=== PATIENT | female | born 1985 | race Caucasian/White ===

== ENCOUNTER 2023-05-07 10:40 | Outpatient (CLI) | payer OTHER, SELFPAY ==
--- NOTE | ~2023-05-07 | XR_ITS ---
EXAMINATION: XR chest 2V 05/07/2023 11:06 INDICATION: Pleurodynia. Left rib pain. PROCEDURE: 2 view chest COMPARISON: No prior studies for comparison. FINDINGS: The lungs are clear. The cardiomediastinal silhouette is within normal limits. There are no pleural effusions. There is no pneumothorax suspected. IMPRESSION: 1: NO ACUTE CARDIOPULMONARY DISEASE. Reviewed, dictated and finalized at location B. [place] PLANNER
--- NOTE | ~2023-05-07 | MMUS_ITS ---
EXAMINATION: MM diagnostic lenard BI w mary, US breast BI complete HISTORY: Left breast/rib pain TECHNIQUE: ML, MLO and CC 3-D tomosynthesis images of both breasts were performed and synthetic 2-D i mages were generated. CAD analysis was submitted and interpreted. High resolution complete bilateral breast ultrasound examination including all 4 quadrants and subareolar areas was performed. COMPARISON: None BREAST PARENCHYMAL COMPOSITION: There are scattered areas of fibroglandular density. FINDINGS: MAMMOGRAPHIC FINDINGS: Possible bilateral breast masses including the following: Approximately 2.6 mm mass is suggested at mid depth in the lower inner right breast. Possible 2.3 x 5 mm mass in the posterior lower outer left breast. There are 2 circumscribed oval opacities in the left axillary tail area measuring approximate 4 and 5 mm, likely benign intramammary lymph nodes. No architectural distortion, malignant calcification, skin thickening or retraction of either breast is detected. ULTRASOUND: No suspicious mass or shadowing of either breast is detected. There is a cyst in each constantino ast: Right breast: 10:00 7 cm from nipple: Parallel circumscribed oval 4.4 x 5.1 x 4.3 mm cyst Left breast: 11:00 7 cm from nipple: 6.7 x 6.7 x 6.6 mm sonolucency with through transmission posterior enhancemen t consistent with simple cyst IMPRESSION: 1. Benign findings 2. Routine annual mammographic screening is recommended BI-RADS Category 2: Benign finding(s). Reviewed, dictated and finalized at location A. INJECTOR AND APPLICATOR IMPRESSION: 1. Benign findings 2. Routine annual mammographic screening is recommended BI-RADS Category 2: Benign finding(s).
== END 2023-05-07 10:41 | disposition home or self-care (01) ==
LOC: CHSIMG 10:46
PROVIDERS: Visit Provider Obstetrics & Gynecology
DX: N64.4 Mastodynia (principal); R07.81 Pleurodynia
CPT/HCPCS: 71046; 76641; 77062; 77066; G0279

== ENCOUNTER 2025-04-18 15:16 | Emergency (ER) | payer OTHER, SELFPAY ==
--- NOTE | ~2025-04-18 | XR_ITS ---
EXAMINATION: XR chest 2V, 04/18/2025 15:30 CONSULTING SERVICES MANAGER HISTORY: cp LEFT SIDE RADIATES NECK/BACK/BREAST X 2 WKS COMPARISON: No comparisons available. Technique: 2 views obtained. Findings: The lungs are clear, no effusion. No pneumothorax. Heart is normal size. Mediastinal and hilar contours are within normal limits. Bony thorax no acute abnormality. Impression: No acute cardiopulmonary abnormality. Reviewed, dictated and finalized at location P. ULTING SERVICES MANAGER Impression: No acute cardiopulmonary abnormality.
--- NOTE | ~2025-04-18 | CT_ITS ---
CTA chest PE protocol HISTORY:Chest pain with elevated D-dimer . COMPARISON: None. TECHNIQUE: Following the noncontrasted transit planner, axial images of the thorax were obtained following infusion of 100 cc of Isovue 370. Post-processing on an independent workstation was performed to reconstruct MIP images for evaluation of the thoracic vasculature. FINDINGS: There is no pulmonary embolism, aortic dissection, thoracic aneurysm or pericardial fluid. The lung parenchyma is clear. No pleural effusion or pneumothorax is noted. There is no axillary, mediastinal or hilar adenopathy. Limited evaluation of the upper abdomen demonstrates no gross abnormalities. Review of bone windows demonstrates no osteoblastic or lytic lesions. IMPRESSION: There is no pulmonary embolism, aortic dissection, pericardial fluid or thoracic aneurysm. No acute lung findings. All CT scans at this facility are performed using low dose modulation techniques as appropriate to perform exam including the following: automated exposure control; use of iterative reconstruction technique; adjustment of the mA and/or kV according to patient size (this includes techniques or standardized protocols for targeted exams where dose is matched to indication/reason for exam). Reviewed, dictated and finalized at location S. ARCHITECT IMPRESSION: There is no pulmonary embolism, aortic dissection, pericardial fluid or thoraci c aneurysm. No acute lung findings. All CT scans at this facility are performed using low dose modulation techniqu es as appropriate to perform exam including the following: automated exposure c ontrol; use of iterative reconstruction technique; adjustment of the mA and/or kV according to patient size (this includes techniques or standardized protocol s for targeted exams where dose is matched to indication/reason for exam).
--- NOTE | 2025-04-18 15:16 | ECG_ITS ---
Test Date: 2025-04-18 15:22:49 Measurements Intervals [place] Rate: 96 P: 62 MN: 132 QRS: 78 QRSD: 71 T: 44 QT: 316 QTc: 399 Interpretive Statements SINUS RHYTHM No previous ECG available for comparison Electronically Signed On 04-18-2025 22:29:08 MILL ORDER SCHEDULER by Babar Reynoso D.O
[2025-04-18 15:18] VITALS: BP 134/68; PULSE 88; RESP 16; TEMP 36.8; O2SAT 98
[2025-04-18 15:39] LABS: Hematocrit 41.5 % (37.0-47.0); Hemoglobin 14.2 g/dL (12.0-15.0); Immature Granulocyte Percent A 0.2 % (0-0.5); Lymphocytes Absolute Auto 0.98 K/mm3 (0.9-3.2); Mean Corpuscular HGB Conc 34.2 g/dl (32-36); Mean Corpuscular Hemoglobin 30.8 pg (26-34); Mean Corpuscular Volume 90.0 fl (80-100); Nucleated Red Blood Cells Absolute Auto 0.000 K/mm3 (0.0-0.012); Nucleated Red Blood Cells Perc 0.0 % (0.0-0.2); Platelet Count Result 236 k/mm3 (150-375); Red Blood Count 4.61 M/mm3 (4.2-5.4); White Blood Count 5.7 K/mm3 (4.5-10.0)
[2025-04-18 16:00] LABS: Alanine Aminotransferase 14 U/L (6-35); Albumin Level 4.5 g/dL (3.5-5.1); Alkaline Phosphatase 81 U/L (38-126); Anion Gap 8 mmol/L (4-12); Aspartate Amino Transferase 22 U/L (14-36); Bilirubin,Total 0.7 mg/dL (0.2-1.3); Blood Urea Nitrogen 7 mg/dL (7-17); Calcium 9.1 mg/dL (8.4-10.2); Carbon Dioxide 25 mmol/L (22-30); Chloride 105 mmol/L (98-107); Estimated CRCL calculation 83 ml/min; Estimated Glomerular Filt Rate > 60; Glucose 106 mg/dL (65-110); Lipase 66 U/L (23-300); Potassium 3.6 mmol/L (3.4-5.0); Sodium 138 mmol/L (137-145); Total Protein 7.4 g/dL (6.3-8.2)
--- OUTSIDE RECORDS SUMMARY | 2025-04-18 16:00 | XMS_ITS | Clinical Summary ---
Author Organization [facility] Address [address] [place] [address] Phone Care Team Providers Care Piece Work Inspector Name Role Phone Unavailable Primary Care Provider Unavailabl e Allergies Active Allergy Reactions Criticality Noted Date Comments Sulfa Antibiotics Swelling 2016 Medications IUD'S IU 2007 Active acetaminophen-cod eine (TYLENOL #3) 300-30 MG Tablet TAKE 1 TABLET BY MOUTH EVERY 4 TO 6 HOURS NEEDED FOR PAIN 2 Active amoxicillin-clavu lanate (AUGMENTIN) 875-125 MG Tablet TAKE 1 TABLET BY MOUTH TWICE DAILY FOR 7 DAYS 2 Active ibuprofen (MOTRIN) 800 MG TabletIndications :Dental infection Take 1 Tablet by mouth every 8 hours as needed for Moderate or more severe pain. 45 Tablet 2 Active docusate sodium (Stool Softener) 100 MG CapsuleIndication s:Constipation, unspecified constipation type Take 1 Capsule by mouth 2 times daily. 180 Capsule 3 2 Active Active Problems Problem Noted Date Diagnosed Date Screening for gonorrhea 01/21/2017 Screening for chlamydial disease 01/21/2017 Cystitis 01/13/2016 Fracture of right ulna OCD (obsessive compulsive disorder) Family History Medical History Relation Name Comments Cancer Brother Cancer Father Cancer Mother Cancer Sister Relation Name Status Comments Brother Father Mother Sister Social History Tobacco Use Types Packs/Day Years Used Date Smoking Tobacco: Never Smokeless Tobacco: Never Tobacco Cessation:Counseling Given: Yes Alcohol Use Standard Drinks/Week Comments No 0 (1 standard drink = 0.6 oz pur e alcohol) PHQ-2 Answer Date Recorded Total Score - Questions 1-9 0 02/2022 Sexually Active Control Partners Comments Never Comments No Sex and Gender Information Value Date Recorded Sex Assigned at Not on file Legal Sex Female 11:20 PM CDT Gender Identity Not on file Sexual Orientation Not on file Last Filed Vital Signs Vital Sign Reading Time Taken Comments Blood Pressure 110/78 01/13/2022 11:05 AM CDT Pulse 92 01/13/2022 11:05 AM CDT Temperature 36.4 C (97.5 F) 01/13/2022 11:05 AM CDT Respiratory Rate 16 01/13/2022 11:05 AM CDT Oxygen Saturation 99% 01/13/2022 11:05 AM CDT Inhaled Oxygen Concentration - - Weight 60.9 kg (134 lb 3.2 oz) 01/13/2022 11:05 AM CDT Height 152.4 cm (5') 01/13/2022 11:05 AM CDT Body Mass Index 26.21 01/13/2022 11:05 AM CDT Plan of Treatment Health Maintenance Due Date Last Done Comments Hepatitis C Virus (HCV) Screening 1985 TdaP Immunization 1985 Hepatitis B Immunization (1 of 3 - 19+ 3-dose series) 01/30/2004 Human Papillomavirus (HPV) Immunization (1 - 3-dose SCDM series) 01/30/2012 Pap Smear 07/08/2014 07/08/2011 Cervical Cancer Screening (CCS) 2015 HPV/Cotest 2015 Influenza Immunization (#1) 2025 SARS-COV-2 Immunization ( season) 2025 Respiratory Syncytial Virus (RSV) Immunization (Adult) (1 - 1-dose 75+ series) 01/30/2060 Meningococcal Immunization (ACWY) Aged Out No longer eligible based on patient's age to complete this topic Pneumococcal Immunization Combined Aged Out No longer eligible based on patient's age to complete this topic Rotavirus Immunization Aged Out No lo nger eligible based on patient's age to complete this topic Procedures Procedure Name Priority Date/Time Associated Diagnosis Comments HM PAP SMEAR Routine 07/08/2011 from Last 3 Months or Most Recently Relevant to Health Maintenance Results * HM PAP SMEAR (07/08/2011) Georgiewestley Russell APRN, RECONCILEMENT CLERK [facility] Chris qi Result - Final from Last 3 Months or Most Recently Relevant to Health Maintenance Insurance [employer]ICA[employer]
--- OUTSIDE RECORDS SUMMARY | 2025-04-18 16:00 | XMS_ITS | Clinical Summary ---
Author Organization [facility] Address [address] [place] [address] Care Team Providers Care Vice President Of Consulting Services Name Role Phone Maame Kiran Primary Care Provider [phone] Allergies No known active allergies Medications ondansetron (ZOFRAN-ODT) 4 MG disintegrating tablet Take 1 tablet (4 mg total) by mouth every 8 (eight) hours as needed. 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 [employer] Gender Identity Not on file Sexual Orientation Not on file Last Filed Vital Signs Vital Sign Reading Time Taken Comments Blood Pressure 154/98 06/09/2024 9:08 PM BAND SAW OPERATOR [employer] Pulse 107 06/09/2024 9:08 PM BAND SAW OPERATOR [employer] Temperature 36.5 C (97.7 F) 06/09/2024 9:08 PM BAND SAW OPERATOR [employer] C[employer]TING Respiratory Rate 18 06/09/2024 9:08 PM BAND SAW OPERATOR [employer]TING Oxygen Saturation 99% 06/09/2024 9:08 PM BAND SAW OPERATOR [employer]TING Inhaled Oxygen Concentration - - Weight 62.6 kg (138 lb) 03/01/2024 8:59 PM CDT Height 152.4 cm (5') 03/01/2024 8:59 PM CDT Body Mass Index 26.95 03/01/2024 8:59 PM CDT Plan of Treatment Health Maintenance Due Date Last Done Comments Annual Physical 01/30/1988 Hepatitis C 2003 DTaP, Tdap and Td Vaccines ( 1 - Tdap) 01/30/2004 Hepatitis B Vaccines (1 of 3 - 19+ 3-dose series) 01/30/2004 HPV Vaccines (1 - 3-dose SCD M series) 01/30/2012 Cervical Cancer Screening Pa p with HPV Testing (Age 30 to 64) Every 5 Years 2015 Mammogram Screening 2025 COVID-19 Vaccine (1 - 2024-2 6 season) 2025 Influenza Adult (#1) 2025 Cervical Cancer Screening Pa p Smear (Age 30 to 64) Every 3 Years 05/21/2026 05/21/2023 Cervical Cancer Screening with HPV 05/21/2026 Hepatitis A Vaccines Aged Out No long er eligible based on patient's age to complete this topic Meningococcal B Vaccine Aged Out No l onger eligible based on patient's age to complete this topic Meningococcal Vaccine Aged Out No arvind raheel eligible based on patient's age to complete this topic Pneumococcal Vaccine: Pediat rics (0 to 5 Years) and At-Risk Patients (6 to 49 Years) Aged Out No longer eligi ble based on patient's age to complete this topic RSV Immunizations Under 20 Months Aged Out No longer eligible based on patient's age to complete this topic Insurance [employer] Care Teams Vice President Of Consulting Services Relationship Specialty Start Date End Date Maame Kiran PA [address] [place] [address] PCP - General FAMILY PRACTICE 06/09/24
--- OUTSIDE RECORDS SUMMARY | 2025-04-18 16:00 | XMS_ITS | Clinical Summary ---
Author Organization [facility] [address] Address [address] [place] [address] Phone Care Team Providers Care Power Crane Operator Name Role Phone Maame Kiran Primary Care Provider [phone] Allergies Active Allergy Reactions Criticality Noted Date Comments Hydrocodone Itching Low 08/04/2024 Medications sertraline (ZOLOFT) 100 mg tabletIndicatio ns:Generalized anxiety disorder Take 1 tablet (100 mg total) by mouth daily 90 tablet 12/27/2024 Active hydrOXYzine (ATARAX) 25 mg tabletIndicatio ns:Generalized anxiety disorder Take 1 tablet (25 mg total) by mouth every 6 (six) hours as needed for anxiety May take 1/2 tab instead of a full tab 30 tablet 12/27/2024 Active Active Problems Problem Noted Date Diagnosed Date Acute reaction to situational stress 02/16/2025 Assessment & Plan (02/16/2025 4:02 PM CDT): Uncontrolled, improving. See notes under generalized anxiety disorder. Patient's situational stress is occurring from her work environment and family situation. The family situation is improving and patient reports that her stress from that is getting better. She is very nervous about returning back to the work environment with a unsupportive esters and em[employer] supervisor. Panic attacks 02/16/2025 Assessment & Plan (02/16/2025 4:02 PM CDT): Uncontrolled but improving. Patient reports panic attacks have significantly improved with reduction in stress Hematometra 08/02/2024 Assessment & Plan (08/16/2024 12:47 PM CDT): Resolved per surgery. Patient reports overall feeling much better. Is still having some mild lower abdominal discomfort at times. She is awaiting a follow-up appointment with the puppet master. They did discuss the possibility of hysterectomy. Cervical stenosis (uterine cervix) 08/02/2024 Assessment & Plan (08/16/2024 12:47 PM CDT): Improved post surgery. Patient does have a follow-up with Gynecology. Generalized anxiety disorder 01/28/2024 Assessment & Plan (02/16/2025 4:02 PM CDT): Uncontrolled, improving. Patient will continue Zoloft and Atarax. Patient does need to continue by weekly counseling. It is very imperative that patient continue with counseling. Patient is very motivated to returned to work. I think with continued counseling and medication adjustments patient should be able to return to work part-time on March 21 and then full-time on April 21. Patient will currently need to continue with short-term disability to be able to continue with counseling and continue with medication adjustments and adjusting to the side effects of the medication. Patient will be able to return to work as long as she is not placed back in the stressful environment with a esters and em[employer]ifiers supervisor who will not allow her to work at reduced hours and/or take time off for counseling. Assessment & Plan (12/27/2024 3:24 PM CDT): Uncontrolled, but improved. Continue zoloft 100mg daily. May take atarax as needed to help with sleep. Orders: sertraline (ZOLOFT) 100 mg tablet; Take 1 tablet (100 mg total) by mouth daily hydrOXYzine (ATARAX) 25 mg tablet; Take 1 tablet (25 mg total) by mouth every 6 (six) hours as needed for anxiety May take 1/2 tab instead of a full tab Assessment & Plan (11/30/2024 1:55 PM CDT): Uncontrolled. Patient will increase Zoloft to 100 mg. Follow-up on December 27 Assessment & Plan (11/21/2024 12:49 PM CDT): Chronic, uncontrolled Increase sertraline to 100 mg daily Continue hydroxyzine as needed Referral to counselor Alma Tam Work excuse extension for 1 more week Follow-up with PCP in 1 week Assessment & Plan (11/09/2024 1:25 PM CDT): Chronic, uncontrolled Recent traumatic event Prescriptions for zoloft and hydroxyzine sent to pharmacy so patient Follow up with counselor Work note Assessment & Plan (06/12/2024 10:01 AM RAILROAD CROSSING PROTECTION MAINTAINER): Uncontrolled: increase zoloft to 75mg Assessment & Plan (06/06/2024 2:21 PM RAILROAD CROSSING PROTECTION MAINTAINER): Chronic, worsening - not well controlled Ample time spent with patient discussing her work situation - encouraged her again to seek out HR help given the backlash from her boss; medically speaking, working towards better anxiety control. Urged patient to take sertraline daily as directed - discussed keeping by bedside, toothbrush, or setting alarm in phone to help remember to take. Discussed counseling/therapist. Pt was seeing a therapist in the past and may reconsider but is concerned about her work schedule and availability. She is going to contact her previous therapist about virtual visits if an option. FMLA in place - work note given for today and 06/03/24 Assessment & Plan (05/10/2024 11:29 AM RAILROAD CROSSING PROTECTION MAINTAINER): Chronic, patient has seen some improvement with sertraline daily. However, she has been having more panic attacks. Mostly related to life challenges and situations at work. Encouraged patient to reach out her HR department regarding her concerns with her superior. Encouraged her to continue daily use of sertraline. She can continue to utilize hydroxyzine as needed. Work excuse for yesterday given. Advised her to follow up with NATHANIEL Kiran Assessment & Plan (03/17/2024 1:37 PM CDT): Uncontrolled. We are going to extend patient's FMLA paperwork that states she can work a max of 6 hours until August. Patient will increase her Zoloft to 50 mg daily over the next week. Then will follow back up with her in 4-6 weeks Assessment & Plan (02/02/2024 12:28 PM CDT): Uncontrolled. 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 Completed FMLA paperwork and sent the paperwork back through [employer] to the patient to turn into HR. Follow-up in 2 weeks Assessment & Plan (01/28/2024 10:22 AM CDT): Uncontrolled. Start zoloft daily. Added atarax as needed for anxiety and panic attacks. Given note for medical leave with days off from 01/28 with a return date of 02/02. Medical leave: for situational anxiety, costochondritis, abdominal pain, and panic attacks. Patient is going to complete her online portion 2 HR regarding her medical leave/FMLA paperwork. Patient will then get the FMLA paperwork and she will bring that in to us to complete melody. Pt will have a follow up on 02/02/24. Costochondritis 01/28/2024 Assessment & Plan (12/27/2024 3:24 PM CDT): Flared with stress. Continue to monitor and take nsaids as needed Assessment & Plan (03/17/2024 1:38 PM CDT): Seems to increase with patient's stress level. She does have naproxen at home and may continue taking that as needed. Assessment & Plan (01/28/2024 10:23 AM CDT): Flared. Due to anxiety. Secondary amenorrhea 01/12/2024 Assessment & Plan (06/12/2024 10:00 AM RAILROAD CROSSING PROTECTION MAINTAINER): Will start bcp. Assessment & Plan (01/12/2024 12:32 PM CDT): Patient has had 2 months now with menstrual cramps. No bleeding. Hormone levels were checked recently. Patient had her IUD removed in May. Will continue monitoring. If patient does not have a menstrual cycle by her next visit we will consider around her Provera Generalized abdominal pain 12/06/2023 Assessment & Plan (02/16/2025 4:02 PM CDT): Uncontrolled. Patient's abdominal pain increases with anxiety and stress. Patient will need to follow back up with GI Assessment & Plan (06/12/2024 10:03 AM RAILROAD CROSSING PROTECTION MAINTAINER): Uncontrolled. Restart MiraLax. Patient does Mylanta at home from the ER. Order pelvic ultrasound. Refer to GI Assessment & Plan (06/06/2024 2:19 PM RAILROAD CROSSING PROTECTION MAINTAINER): Chronic, worsening - severe episode of pain a few days ago now improved. Encouraged pt to get CT scheduled If pain returns/worsens, she will go to the ER Assessment & Plan (02/02/2024 12:28 PM CDT): Uncontrolled and increase due to stress. At this time we need to start the SSRI to help reduce her stress level. She needs to continue with her high-fiber foods and MiraLax. Patient may need to consider some antacids like Tums or Rolaids for a few days. Assessment & Plan (01/28/2024 10:23 AM CDT): Worsening. Most likely due to chronic constipation. See notes above under constipation Assessment & Plan (01/12/2024 12:30 PM CDT): Improving. Patient will start MiraLax every other day and may increase to daily depending on her bowel movement inconsistency of the bowel movements. Still awaiting CT scan results. Patient's overall symptoms have improved so most likely her abdominal discomfort is coming from chronic constipation Assessment & Plan (12/06/2023 3:21 PM CDT): Possibly caused by chronic constipation. Will start patient on MiraLax. Awaiting CT scan results. Talked with patient about drinking plenty of water. Talked with patient about daily exercise. Talked with patient about high-fiber foods. Follow-up in March Other constipation 12/06/2023 Assessment & Plan (08/22/2024 4:51 PM CDT): Reports that she was having complaints of constipation as well as severe abdominal pain. She presented to the ED on 08/02/2024 in which hematometra was noted. She had a hysteroscopy as well as a LEEP procedure performed and was started on MiraLax. She states her complaints of lower abdominal pain have significantly decreased and she is currently having soft formed bowel movements daily. Will note small amount of bright red blood on the tissue when she happens to strain but has not seen recently. -Recommended for her to continue daily MiraLax at this timeframe -Increasing constipation could be due to the hematometra -We will follow up in roughly 1 month to see how she is doing and discussed possible colonoscopy. Assessment & Plan (08/16/2024 12:47 PM CDT): Chronic, patient is doing better since surgery. She is taking the stool softener. She has restarted the MiraLax. Patient has an upcoming appointment with GI on August 22 Assessment & Plan (06/12/2024 10:00 AM RAILROAD CROSSING PROTECTION MAINTAINER): Uncontrolled. Restart miralax. Assessment & Plan (01/28/2024 10:22 AM CDT): Uncontrolled due to increase in stress. It is flaring her irritable bowel. Patient will continue with MiraLax daily. Continue with fluids. Continue with high-fiber foods Assessment & Plan (01/12/2024 12:31 PM CDT): Improving. Patient will increase MiraLax to every other day and then move up to daily if tolerated Assessment & Plan (12/06/2023 3:21 PM CDT): New issue. Talked with patient about high-fiber foods. Start patient on MiraLax. Take daily. If stools become too soft or loose reduce to every other day or every 3rd day. Health maintenance examination 09/27/2023 Overview (12/06/2023): PMH: 12/06/23 Last pap: 05/21/23 Last mammogram: Last dexa: Last colonoscopy/cologuard: Last tdap: Last Prevnar/pneumovax: Last Shingrix: Last eye exam: Rib pain on left side 09/27/2023 Assessment & Plan (01/28/2024 10:23 AM CDT): Flared: Costochondritis is flaring due to patient's stress which is triggering chest pain. We are going to start patient on Zoloft and Atarax. Patient will need to take a few days off work so that we can get the medication in her system and working. Assessment & Plan (10/18/2023 2:55 PM CDT): Improving, continue naproxen for another 10 days. Assessment & Plan (09/27/2023 1:50 PM CDT): New issue. Order x-ray of the left ribs. Concern for possible costochondritis. Prescribed naproxen twice a day for 10 days. Patient will follow-up in 2-3 weeks. Breast pain 09/27/2023 Assessment & Plan (10/18/2023 2:55 PM CDT): Imaging studies negative. Symptoms improving. Continue naproxen for another 10 days Assessment & Plan (09/27/2023 1:51 PM CDT): New issue. Mostly in the left breast. Requested imaging results from [facility]. Concerned this could be fibrocystic breast tissue, side effect from caffeine, or hormonal irregularity. Encourage patient to reduce caffeine intake. Will follow-up in 2 weeks. Most likely will need to perform hormone lab test in 2 weeks Resolved Problems Problem Noted Date Diagnosed Date Resolved Date Encounter for BCP ( con trol pills) initial prescription 06/12/2024 08/16/2024 Assessment & Plan (06/12/2024 9:59 AM RAILROAD CROSSING PROTECTION MAINTAINER): Start control pill this Wednesday. F/u on 06/19. Acute reaction to situational stress 12/06/2023 12/27/2024 Assessment & Plan (11/30/2024 1:55 PM CDT): Uncontrolled. Patient will increase Zoloft to 100 mg. Follow-up on December 27 Assessment & Plan (11/21/2024 12:49 PM CDT): Acute, uncontrolled Increase sertraline to 100 mg daily Continue hydroxyzine as needed Referral to counselor Alma Tam Work excuse extension for 1 more week Follow-up with PCP in 1 week Assessment & Plan (11/09/2024 1:25 PM CDT): Acute, uncontrolled Recent traumatic event Refill sent to pharmacy for hydroxyzine - has not had medication available Notify if does not improve with medication Follow up with counselor Work note today Follow up in 2 weeks Orders: sertraline (ZOLOFT) 50 mg tablet; Take 1.5 tablets (75 mg total) by mouth daily hydrOXYzine (ATARAX) 25 mg tablet; Take 1 tablet (25 mg total) by mouth every 6 (six) hours as needed for anxiety May take 1/2 tab instead of a full tab Assessment & Plan (06/12/2024 10:03 AM RAILROAD CROSSING PROTECTION MAINTAINER): Uncontrolled. Increase Zoloft to 75 mg. Reiterated the [facility] paperwork to patient. One HR is telling her is not what is in the [facility] paperwork. She needs to follow a complaint with her company. Assessment & Plan (03/17/2024 1:37 PM CDT): Uncontrolled. We are going to extend patient's [employer] paperwork that states she can work a max of 6 hours until August. Patient will increase her Zoloft to 50 mg daily over the next week. Then will follow back up with her in 4-6 weeks Assessment & Plan (02/02/2024 12:28 PM CDT): Uncontrolled. 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 Completed FMLA paperwork and sent the paperwork back through [employer] to the patient to turn into HR. Follow-up in 2 weeks Assessment & Plan (01/28/2024 10:22 AM CDT): Uncontrolled. Start zoloft daily. Added atarax as needed for anxiety and panic attacks. Given note for medical leave with days off from 01/28 with a return date of 02/02. Medical leave: for situational anxiety, costochondritis, abdominal pain, and panic attacks. Patient is going to complete her online portion 2 HR regarding her medical leave/FMLA paperwork. Patient will then get the FMLA paperwork and she will bring that in to us to complete melody. Pt will have a follow up on 02/02/24. Assessment & Plan (01/12/2024 12:31 PM CDT): Situational stress: Uncontrolled. Patient is still dealing with a lot of work stress. We will consider medication at her next visit. Patient is going to try to have some FMLA paperwork completed for intermittent leave. Assessment & Plan (12/06/2023 3:21 PM CDT): New issue. Due to work hours and stress at work. Patient given a note to have restricted work hours for at least the next 3 weeks while we were awaiting her CT scan results Fracture of right ulna 09/27/202309/26 OCD (obsessive compulsive disorder) 09/27/2023 09/27/2023 Encounters Date Type Department Care Team Description 02/16/2025 3:00 PM CDT Telemedicine [facility] [address] [address] Maame Kiran PA Generalized anxiety disorder (Primary Dx); Acute reaction to situational stress; Generalized abdominal pain; Panic attacks from Last 3 Months Immunizations Immunization Administration Dates Next Due Influenza, Unspecified 02/16/2025(Deferr ed: Patient Refused),03/17/2024(Deferred: Patient Refused),03/07/2024(Deferred: Patient Refused),03/07/2023(Deferred: Patient Refused),03/07/2023(Deferred: Patient Refused),03/07/2023(Deferred: Patient Refused),03/07/2022(Deferred: Patient Refused) Tdap 03/17/2024(Deferred: Patient Ref used) Surgical History Surgery Date Site/Laterality Comments OTHER SURGICAL HISTORY 1988 Ear infections: tubes in ears OTHER SURGICAL HISTORY Tonsillitis: tonsillectomy in childhood OTHER SURGICAL HISTORY 2006 GAYLA II: LEEP conization (positive margins) OTHER SURGICAL HISTORY Anxiety, OCD, depression: counseling, meds OTHER SURGICAL HISTORY 2012 Recurrent GAYLA II-III: LEEP conization: GAYLA III/CIS on pathology CERVICAL BIOPSY W/ LOOP ELECTRODE EXCISION 07/08/2024 - 08/04/2024 Medical History Medical History Date Comments Hx Other Medical 1988 Ear infections Tonsillitis Tonsillitis Hx Other Medical 2006 GAYLA II Hx Other Medical Anxiety, OCD, d epression Hx Other Medical 2012 Recurrent GAYLA I I-III OCD (obsessive compulsive disorder) 09/27/2023 Anxiety Family History Medical History Relation Name Comments Colon cancer Brother Cancer, colon; Other Daughter Vaca's syndro me; Cancer Father Jamie Chris Lung cancer Father Jamie Chris Cancer, lung; C ause of : Cancer, lung Heart attack Maternal Grandfather Myocard ial infarction; Cancer Mother Yoly Chris Other Mother Yoly Chris Liposarcoma; Ca use of : Liposarcoma Heart attack Mother's Brother 1 Myocardia l infarction; Heart attack Mother's Brother 2 Shai Belcher Breast cancer Mother's Sister Cancer, constantino ast; Relation Name Status Comments Brother Daughter Father Jamie Chris Maternal Grandfather Mother Yoly Chris Mother's Brother 1 Mother's Brother 2 Shai Belcher Mother's Sister Social History Tobacco Use Types Packs/Day Years Used Date Smoking Tobacco: Never Smokeless Tobacco: Never Tobacco Cessation:Counseling Given: Not Answered Alcohol Use Standard Drinks/Week Comments No 0 (1 standard drink = 0.6 oz pur e alcohol) [facility] Utilities Answer Date Recorded In the past 12 months has e [employer], gas, oil, or water [employer] threatened to shut off services in your home? No 08/03/2024 Social Connection and Isolation Panel Answer Date Recorded In a typical week, how many times do you talk on the phone with family, friends, or neighbors? More than three times a week 08/03/2024 How often do you get togethe r with friends or relatives? More than three times a week 08/03/2024 How often do you attend chur ch or hoahaoism services? Never 08/03/2024 Do you belong to any clubs o r organizations such as jehovah's witness groups, unions, fraternal or athletic groups, or school groups? No 08/03/2024 How often do you attend meet ings of the clubs or organizations you belong to? Never 08/03/2024 Are you , , di vorced, , never , or living with a partner? Never 08/03/2024 AUDIT-C Answer Date Recorded Q1: How often do you have a drink containing alcohol? Never 11/21/2024 Q2: How many drinks containi ng alcohol do you have on a typical day when you are drinking? Patient does not drink Q3: How often do you have si x or more drinks on one occasion? Never 11/21/2024 Overall Financial Resource Strain (CARDIA) Answe r Date Recorded How hard is it for you to pa y for the very basics like food, housing, medical care, and heating? Not very hard 08/03/2024 PHQ-2 Answer Date Recorded PHQ-2 Total Score (If total score is 3 or more points, staff should administer the PHQ-9) 2 02/16/2025 Hunger Vital Sign Answer Date Recorded Within the past 12 months, y ou worried that your food would run out before you got the money to buy more. Never true 08/03/19 25 Within the past 12 months, t he food you bought just didn't last and you didn't have money to get more. Never true 08/03/2024 PRAPARE - Transportation Answer Date Re corded In the past 12 months, has l ack of transportation kept you from medical appointments or from getting medications? No 07/09 In the past 12 months, has l ack of transportation kept you from meetings, work, or from getting things needed for daily living? No 08/03/2024 PHQ-9 Answer Date Recorded PHQ-9 Total Score 9 02/16/2025 Housing Stability Vital Sign Answer Brown e Recorded In the last 12 months, was t here a time when you were not able to pay the mortgage or rent on time? No 08/03/2024 In the past 12 months, how m any times have you moved where you were living? 0 08/03/2024 At any time in the past 12 m [facility], were you homeless or living in a fci (including now)? No 08/03/2024 Personal Safety Answer Date Recorded Have you ever been in or are you currently in a harmful physical or emotional relationship or is someone making you feel afraid or unsafe? Denies 08/02/2024 Comments No Sex and Gender Information Value Date Recorded Sex Assigned at Not on file Legal Sex Female 3:26 PM RAILROAD CROSSING PROTECTION MAINTAINER Gender Identity Not on file Sexual Orientation Not on file Last Filed Vital Signs Vital Sign Reading Time Taken Comments Blood Pressure 115/69 08/22/2024 4:01 PM CDT Pulse 88 08/22/2024 4:01 PM CDT Temperature 36.5 C (97.7 F) 08/04/2024 3:17 AM RAILROAD CROSSING PROTECTION MAINTAINER Respiratory Rate 18 08/04/2024 7:30 AM RAILROAD CROSSING PROTECTION MAINTAINER Oxygen Saturation 97% 08/04/2024 7:30 AM RAILROAD CROSSING PROTECTION MAINTAINER Inhaled Oxygen Concentration - - Weight 60.6 kg (133 lb 9.6 oz) 08/22/2024 4:01 P M CDT Height 152.4 cm (5') 11/21/2024 12:20 PM CDT Body Mass Index 26.09 08/02/2024 7:31 PM RAILROAD CROSSING PROTECTION MAINTAINER Plan of Treatment Health Maintenance Due Date Last Done Comments Breast Cancer Screening-Mammogram 1985 Hepatitis C Screening 1985 DTaP/Tdap/Td Vaccine (1 - Tdap) 01/30/1996 Varicella Vaccines (1 of 2 - 13+ 2-dose series) 1998 Hepatitis B Screening 2003 HPV Vaccines (1 - 3-dose SCDM series) 01/30/2012 Influenza Vaccine (#1) 2025 Cervical Cancer Screening 06/19/20252024, 05/19/2023, 11/07/2012 Regular Well Visit/Exam 18-64 06/19/2025 06/19/2024 Depression Screening 02/16/2026 02/16/2025, 02/16/2025, 12/27/2024, Additional history exists Pneumococcal vaccine <65 Aged Out No longer eligible based on patient's age to complete this topic Procedures Procedure Name Priority Date/Time Associated Diagnosis Comments PAP AND HPV, REFLEX TO HPV GENOTYPES Routine 06/19/2024 1:48 PM RAILROAD CROSSING PROTECTION MAINTAINER Pap smear, as part of routine gynecological examination Special screening examination for human papillomavirus (HPV) from Last 3 Months or Most Recently Relevant to Health Maintenance Results * Pap and HPV, reflex to HPV Genotypes (06/19/2024 1:48 PM RAILROAD CROSSING PROTECTION MAINTAINER) CLINICAL INFORMATION: [facility] Comment:ANNUAL NO PERIOD SIN CE STOP DEPO LMP [facility] Comment:STARTED BCP Previous Pap [facility] Comment:NONE GIVEN Prev. Bx [facility] Comment:NONE GIVEN SOURCE: [facility] Comment:Cervix, Endocervix Pap, specimen adequacy [facility] Comment: Satisfactory for evaluation. Endocervical/transformation zone component present. HPV interp [facility] Comment: Cytology Results: Negative for intraepithelial lesion or malignancy. COMMENTS [facility] Comment: This case could not be evaluated with computer assisted technology. The slide was manually screened according to routine procedures. Sewer And Inspector [facility] Comment: BES, CT(ASCP) CT screening location: [place] [address] [place] [address] Comment [facility] Comment: EXPLANATORY NOTE: The Pap is a screening test for cervical cancer. It is not a diagnostic test and is subject to false negative and false positive results. It is most reliable when a satisfactory sample, regularly obtained, is submitted with relevant clinical findings and history, and when the Pap result is evaluated along with historic and current clinical information. Human papillomavirus DNA, High Risk E6/E7 Not Detected NOT DETECTED [facility] Comment: Not Detected High Risk HPV types (16,18,31,33,35,39,45,51,52, 56,58,59,66,68) were not detected. Other HPV types which cause anogenital lesions may be present. The significance of the other types of HPV in malignant processes has not been established. Methodology: Real Time PCR Thin prep-Endocervica l 06/19/2024 1:48 PM RAILROAD CROSSING PROTECTION MAINTAINER 06/20/2024 5:16 AM RAILROAD CROSSING PROTECTION MAINTAINER us Maame [facility] CYTOLOGY ORDERABLES Final Result [facility] [address] [place] [address] [facility] [address] [place] [address] from Last 3 Months or Most Recently Relevant to Health Maintenance Insurance [facility] Member Subscriber Plan / Payer (Ef fective 2023-Present) Name:Yola Chris Relation to Subscriber:Self Name:Yola Chris Payer ID:[id number] (NAIC) Group ID:Not on file Type:MEDICAID RISK OTHER Address: ATTN: CLAIMS DEPT [address] [facility] [place] [phone] Advance Directives For more information, please contact: [phone] * Full Code (Latest Code Status on File) Date Activated Date Inactivated Comments 08/03/2024 1:45 PM 08/04/2024 8:50 PM * Full Code Date Activated Date Inactivated Comments 08/02/2024 3:53 PM 08/03/2024 1:45 PM Care Teams Power Crane Operator Relationship Specialty Start Date End Date Maame Kiran PA [address] [place] [id number] PCP - General Family Medicine 09/30/23
--- OUTSIDE RECORDS SUMMARY | 2025-04-18 16:00 | XMS_ITS | Data Portability ---
Author Organization [facility] [employer] , [facility] Address [address] [place] [address] Assessment No assessment recorded. Plan of Treatment Reminders Order Date Submit Date Provider Last Modified By Organization Details Last Modified Time Details Appointments None record ed. Lab None record ed. Referral None record ed. Procedures None record ed. Surgeries None record ed. Imaging None record ed. Medication Orders None record ed. Patient TargetsNo targets recorded. Patient InstructionsNo instructions recorded. Reason for Referral None Reported. Procedures Surgical History Date Name Laterality Status Provider Name and Address Organization Details Recorded Time 08/02/19 [address] [facility] [employer] 08/22/2024 14:39:31 06/07/19 25 Date of Last Pap Smear completed [facility] 08/22/2024 14:25:51 Imaging Results None recorded. Procedure Notes None recorded. Medical Equipment None Reported. Allergies Allergen ID Allergen Name Allergen Category Reaction Reaction Severity Criticality Documentation Date Start Date Code Code System Note Provider Name and Address Organization Details Recorded Time 179915 hydrocodo ne Not available Not available Not available Not available 08/22/2024 5489 [facility] [employer] 14:24:08 Medications Name Sig Start Date Stop Date Status Note LastModified by Organization Details LastModified Time hydrocodone 5 mg-acetaminop hen 325 mg tablet TAKE 1 TABLET BY MOUTH EVERY 4 HOURS NEEDED FOR PAIN 08/22 completed Not Available Not Available Not Available polyethylene glycol 3350 17 gram/dose oral powder MIX 17 GRAMS IN 8 OUNCES OF LIQUID AND DRINK BY MOUTH DAILY active Not Available Not Available No t Available amoxicillin 500 mg-potassium clavulanate 125 mg tablet TAKE 1 TABLET BY MOUTH EVERY 12 HOURS FOR 7 DAYS 08/22 completed Not Available Not Available Not Available Depo-Provera active Not Available Not Available Not Available Blisovi Fe 06/26 (28) 1 mg-20 mcg (21)/75 mg (7) tablet TAKE 1 TABLET BY MOUTH DAILY 08/22 completed Not Available Not Available Not Available Vitals Date Recorded Body height Body mass index (BMI) Body weight Systolic And Diastolic Provider Name and Address Organization Details Last Updated DateTime 08/22/2024 152.4 cm 26.2 kg/m2 82551.38 g 118/74 mm[Hg] Alma García [employer] [facility] 08/22/2024 14:23:09 Social History Question Answer Notes LastModified by [employer] Details LastModified Time Tobacco Smoking Status Never Smoker Alma melendez [employer] [facility] 08/22/2024 14:29:43 Are You Blind Or Do You Have Difficulty Seeing? No [email or web address] Information not available 08/22/2024 Are You Deaf Or Do You Have Serious Difficulty Hearing? No [email or web address] Information not available 08/22/2024 What Type Of Diet Are You Following? REGULAR [email or web address] Information not available 08/22/2024 How Many Children Do You Have? 2 [email or web address] Information not available 08/22/2024 What Is Your Relationship Status? Single [email or web address] Information not available 08/22/2024 Are You Sexually Active? No [email or web address] Information not available 08/22/2024 Sex: Unknown Functional Status Question Answer Note LastModified by [employer] Details LastModified Time Do you use any illicit or recreational drugs? No Information not available 08/22/2024 Do you or have you ever used any other forms of tobacco or nicotine? No [email or web address] Information not available 08/22/2024 What is your level of alcohol consumption? None [email or web address] Information not available 08/22/2024 What is your exercise level? None [email or web address] Information not available 08/22/2024 Mental Status None recorded. Family History Nothing Reported Notes:mom of bone cance r Medical History No medical history recorded. Gynecological History Statement/Question Response Date of Last Colonoscopy Date of LMP 08/02/2024 Most Recent Bone Density Date of Last Pap Smear 06/07/2024 Most Recent Mammogram Current Control Method Depo-Tool Mechanic a Obstetrics History GPAL:G 3 P 1 1 1 2 Type Value Full Term 1 Spontaneous 1 Premature 1 Living 2 Total 3 Past Encounters Encounter ID Performer Location Encounter Start Date Encounter Closed Date Diagnosis/Indication Diagnosis SNOMED-CT Code Diagnosis ICD10 Code Diagnosis IMO Codes Diagnosis Note [id number] Grace Major MD [facility] [address] [place] [address] 08/22/2024 14:15:35 08/22/2024 20:00:39 Hematometra 28003844 N85.7 [id number] pt is status post suction D and C and LEEP due to severe hematometr ia due to cervical outlet obstructio n. She is improved and feeling better, though still some soreness.S he is given a work note to limit work hrs to 6/day and no lifting over 20 p for the next 4 wkRTC 2 - 3 mo Health Concerns Section Related Observation LastModified by Organization Detai ls LastModified Time None Recorded Concern Status LastModified by Organization Details LastModified Time None Recorded Advance Directives Directive None Recorded Payers Insurance Date Sequence Insurance Name Policy Number Policy Dawson Covered Member ID Dawson Member ID Guarantor Name 08/16/2024 1 *SELF PAY* Alycia Chris 08/22/2024 1 [facility] ON OR AFTER 12/05/20 (MEDICAID REPLACEMENT - HMO) Yola Chris [id number] Yola Chris Notes Date Note Type Note Provider Name and Address Organization Details Recorded Time 08/22/2024 text/html Yola is a 39yo new pt. Pt. present here for post op. Pt. had emergency surgery on 08-02-2024 after presenting to the ER in severe abd pain. Ultrasound revealed that she had hematometria and she was taken for surgery which was hysteroscopy D and C at [facility].We also did a LEEP excision to alleviate the cervical stenosis.She states that this hematometria was extremely painful and even causing back pain and constipationSince the surgery, she has felt much better but still has some pain, particularly on her left side into her groin. She is having normal bowel movements now. She has followed up with her primary. 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 She does not feel she can work her usual 12 hrs as she will get sore and fatiguedShe bled for about a week after the surgery.She did receive a depo provera inj prior to discharge to suppress menses Grace Major MD [address] [facility], [place], [address], [facility] 08/22/2024 20:00:31 OBGyn Episode Ob Episode Information Episode Created Date Number of Fetuses Patient Bloodtype Patient rh Status Prepregnancy Weight lbs Domestic Partner Domestic Partner Phone Father Name Family Protection Specialist Status 08/23/19 25 1 CLOSED Fetus Data First Name Last Name Admitted to NICU Weight (g) Sex Living Outcome Pediatric Complications Fetus ID Race Codes Race Delivery Type 8987.02 4704 M Full Term [id number] Robb Calculation Initial Robb Date Initial Exam Date Initial Exam Provider Initial Ultrasound Date Last Menstrual Period Date Ultra Sound Weeks Gestation 0 Eighteen To Twenty Week Robb Update Ultra Sound Date Fundal Height At Umbil Quickening Date Ultra Sound Latest Weeks Gestation Final Robb Confirmed By Final Robb Confirmed Date Final Robb Date Ultra Sound Latest Days Gestation 0 0 Menstrual History Last Menstrual Date Menses Monthly On Bcp Conception Prior Menses Frequency Hcg Plus Date Menarche Onset Age Delivery Information Delivery Date Delivery Type Labor Anesthesia Weeks Gestation Incision Type Labor Labor Length Hrs Delivered By Post Complications Tubal Sterilization Discharge Date Comments 7 38 Discharge Information Feeding Method Contraceptive Method Maternal HG B and HCT Levels Ob Episode Information Episode Created Date Number of Fetuses Patient Bloodtype Patient rh Status Prepregnancy Weight lbs Domestic Partner Domestic Partner Phone Father Name Family Protection Specialist Status 08/23/19 25 1 CLOSED Fetus Data First Name Last Name Admitted to NICU Weight (g) Sex Living Outcome Pediatric Complications Fetus ID Race Codes Race Delivery Type 2900.97 5704 M Prematur e [id number] Robb Calculation Initial Robb Date Initial Exam Date Initial Exam Provider Initial Ultrasound Date Last Menstrual Period Date Ultra Sound Weeks Gestation 0 Eighteen To Twenty Week Robb Update Ultra Sound Date Fundal Height At Umbil Quickening Date Ultra Sound Latest Weeks Gestation Final Robb Confirmed By Final Robb Confirmed Date Final Robb Date Ultra Sound Latest Days Gestation 0 0 Menstrual History Last Menstrual Date Menses Monthly On Bcp Conception Prior Menses Frequency Hcg Plus Date Menarche Onset Age Delivery Information Delivery Date Delivery Type Labor Anesthesia Weeks Gestation Incision Type Labor Labor Length Hrs Delivered By Post Complications Tubal Sterilization Discharge Date Comments 8 36.2 Discharge Information Feeding Method Contraceptive Method Maternal HG B and HCT Levels
[2025-04-18 16:08] LABS: INR 1.0; Partial Thromboplastin Time 27.8 Seconds (22.3-36.8); Prothrombin Time 13.1 Seconds (11.1-14.7)
[2025-04-18 16:12] LABS: Troponin I < 0.012 ng/mL (0.000-0.034)
--- NOTE | 2025-04-18 16:44 | ED_ITS ---
HPI - Chest Pain General Chief Complaint: Chest Pain <Ivette Benton PA-C - Last Filed: 04/28/25 14:09> Stated Complaint: cp <Ivette Benton PA-C - Last Filed: 04/28/25 14:09> Time Seen by Provider: 04/18/25 16:44 <Ivette Benton PA-C - Last Filed: 04/28/25 14:09> Focused HPI: This is a 40 year old female that presents to the ER for substernal chest pain. Ongoing off and on for the last week and a half. Reports acute worsening. Reports her left breast is swollen. Reports her last mammogram was last year. Reports the pain radiates to her neck and shoulder blade. Denies fevers. GENERAL: Well-appearing, well-nourished, and in no acute distress. HEAD: Normocephalic, atraumatic. CHEST: Clear to auscultation. ?No respiratory distress. HEART: Regular rate and rhythm.? NEURO: ?Alert and oriented x3. Patient screened in triage and initial orders placed.? ?Additional care and disposition to be based upon?diagnostic testing and treatment. <Ivette Benton PA-C - Last Filed: 04/28/25 14:09> History of Present Illness HPI narrative: I agree with the above HPI <Abhinav Tesfaye MD - Last Filed: 04/29/25 07:53> Related Data Allergies/Adverse Reactions: Allergies Allergy/AdvReac Type Severity Reaction Status Date / Time No Known Allergies Allergy Verified 04/18/25 18:10 <Ivette Benton PA-C - Last Filed: 04/28/25 14:09> Review of Systems 2 Review of Systems: All systems reviewed & are unremarkable except as noted in HPI and below <Abhinav Tesfaye MD - Last Filed: 04/29/25 07:53> Exam 2 Narrative: APPEARANCE: Well appearing, no pain, no distress, well-nourished. HEAD: normocephalic, atraumatic. EYES: PERRLA/EOMI, conjunctivae clear. NOSE: Normal no drainage EARS:TMS clear with good light reflex. THROAT: Pharynx clear, no exudate. NECK: Supple. No adenopathy, no masses. RESPIRATORY: Airway patent, respirations nonlabored. Clear to auscultation bilaterally, no rales, rhonchi, wheezing. CARDIOVASCULAR: Regular rate and rhythm without murmurs rubs or gallops. ABDOMINAL: Soft, nontender, nondistended, normal bowel sounds MUSCULOSKELETAL: Moves all extremities. Strength/ROM intact, No edema, No calf tenderness. NEURO: Alert. Cranial nerves II through XII intact. Good gait. Good coordination SKIN: Warm, dry. Normal Color <Abhinav Tesfaye MD - Last Filed: 04/29/25 07:53> Course Vital Signs Vital signs: Vital Signs Temperature 98.2 F 04/18/25 15:18 Pulse Rate 88 04/18/25 15:18 Respiratory Rate 16 04/18/25 15:18 Blood Pressure 134/68 04/18/25 15:18 Pulse Oximetry 98 04/18/25 15:18 Temperature 98.2 F 04/18/25 15:18 Pulse Rate 66 04/18/25 22:30 Respiratory Rate 14 04/18/25 22:30 Blood Pressure 126/77 04/18/25 22:30 Pulse Oximetry 99 04/18/25 22:30 Oxygen Delivery Room Air 04/18/25 20:23 <Ivette Benton PA-C - Last Filed: 04/28/25 14:09> Vital Signs Temperature 98.2 F 04/18/25 15:18 Pulse Rate 88 04/18/25 15:18 Respiratory Rate 16 04/18/25 15:18 Blood Pressure 134/68 04/18/25 15:18 Pulse Oximetry 98 04/18/25 15:18 Temperature 98.2 F 04/18/25 15:18 Pulse Rate 66 04/18/25 22:30 Respiratory Rate 14 04/18/25 22:30 Blood Pressure 126/77 04/18/25 22:30 Pulse Oximetry 99 04/18/25 22:30 Oxygen Delivery Room Air 04/18/25 20:23 <Abhinav Tesfaye MD - Last Filed: 04/29/25 07:53> MDM - Chest Pain MDM Narrative Medical decision making narrative: 40-year-old female presents emergency department for evaluation for left- sided chest pain. Patient is afebrile with no leukocytosis stable hemoglobin of 14.2. Patient did have an elevated D-dimer of 1.3. Patient had negative serial troponins. CTA chest showed no acute findings including no evidence of pulmonary embolism. Low concern for ACS. Suspect muscular injury. Patient was updated the results of her workup patient was encouraged close follow-up with primary care physician. All questions concerns were addressed patient was well- appearing at time of discharge. <Abhinav Tesfaye MD - Last Filed: 04/29/25 07:53> Differential Diagnosis Differential diagnosis: Likely fracture of rib, pneumothorax, stable angina, unstable angina pectoris, atypical chest pain, st elevation myocardial infarction, costochondritis, chest pain and biliary colic <Abhinav Tesfaye MD - Last Filed: 04/29/25 07:53> Lab Data Attestation: I reviewed the patient's lab results. <Abhinav Tesfaye MD - Last Filed: 04/29/25 07:53> Result diagrams: 04/18/25 15:31 04/18/25 15:31 <Ivette Benton PA-C - Last Filed: 04/28/25 14:09> Labs: Lab Results 04/18/25 04/18/25 Range/Units 15:31 19:23 WBC 5.7 (4.5-10.0) K/mm3 RBC 4.61 (4.2-5.4) M/mm3 Hgb 14.2 (12.0-15.0) g/dL Hct 41.5 (37.0-47.0) % MCV 90.0 (80-100) fl MCH 30.8 (26-34) pg MCHC 34.2 (32-36) g/dl RDW 12.3 (11.5-14.5) % Plt Count 236 (150-375) k/mm3 MPV 10.4 (7.4-10.4) fl Immature Gran % (Auto) 0.2 (0-0.5) % Neut % (Auto) 72.7 (45.5-73.1) % Lymph % (Auto) 17.3 L (18.3-44.2) % [place] % (Auto) 8.8 H (2.6-8.5) % Eos % (Auto) 0.5 (0-4.4) % Baso % (Auto) 0.5 (0.2-1.2) % Lymph # (Auto) 0.98 (0.9-3.2) K/mm3 [place] # (Auto) 0.5 (0.1-0.6) K/mm3 Eos # (Auto) 0.0 (0-0.3) K/mm3 Baso # (Auto) 0.0 (0.0-0.1) K/mm3 Abs Immat Gran (auto) 0.01 (0.00-0.031) K/mm3 Absolute Neuts (auto) 4.1 (1.3-6.7) K/mm3 Absolute Nucleated RBC 0.000 (0.0-0.012) K/mm3 Nucleated RBC % 0.0 (0.0-0.2) % PT 13.1 (11.1-14.7) Seconds INR 1.0 APTT 27.8 (22.3-36.8) Seconds D-Dimer 1.30 H (<0.48) ug/mL Sodium 138 (137-145) mmol/L Potassium 3.6 (3.4-5.0) mmol/L Chloride 105 (98-107) mmol/L Carbon Dioxide 25 (22-30) mmol/L Anion Gap 8 (4-12) mmol/L BUN 7 (7-17) mg/dL Creatinine 0.63 L (0.7-1.0) mg/dL Estim Creat Clear Calc 83 ml/min Estimated GFR > 60 (59 - ) Glucose 106 (65-110) mg/dL Calcium 9.1 (8.4-10.2) mg/dL Total Bilirubin 0.7 (0.2-1.3) mg/dL AST 22 (14-36) U/L ALT 14 (6-35) U/L Alkaline Phosphatase 81 (38-126) U/L Troponin I < 0.012 < 0.012 (0.000-0.034) ng/mL Total Protein 7.4 (6.3-8.2) g/dL Albumin 4.5 (3.5-5.1) g/dL Lipase 66 (23-300) U/L <Ivette Benton PA-C - Last Filed: 04/28/25 14:09> Lab Results 04/18/25 04/18/25 Range/Units 15:31 19:23 WBC 5.7 (4.5-10.0) K/mm3 RBC 4.61 (4.2-5.4) M/mm3 Hgb 14.2 (12.0-15.0) g/dL Hct 41.5 (37.0-47.0) % MCV 90.0 (80-100) fl MCH 30.8 (26-34) pg MCHC 34.2 (32-36) g/dl RDW 12.3 (11.5-14.5) % Plt Count 236 (150-375) k/mm3 MPV 10.4 (7.4-10.4) fl Immature Gran % (Auto) 0.2 (0-0.5) % Neut % (Auto) 72.7 (45.5-73.1) % Lymph % (Auto) 17.3 L (18.3-44.2) % [place] % (Auto) 8.8 H (2.6-8.5) % Eos % (Auto) 0.5 (0-4.4) % Baso % (Auto) 0.5 (0.2-1.2) % Lymph # (Auto) 0.98 (0.9-3.2) K/mm3 [place] # (Auto) 0.5 (0.1-0.6) K/mm3 Eos # (Auto) 0.0 (0-0.3) K/mm3 Baso # (Auto) 0.0 (0.0-0.1) K/mm3 Abs Immat Gran (auto) 0.01 (0.00-0.031) K/mm3 Absolute Neuts (auto) 4.1 (1.3-6.7) K/mm3 Absolute Nucleated RBC 0.000 (0.0-0.012) K/mm3 Nucleated RBC % 0.0 (0.0-0.2) % PT 13.1 (11.1-14.7) Seconds INR 1.0 APTT 27.8 (22.3-36.8) Seconds D-Dimer 1.30 H (<0.48) ug/mL Sodium 138 (137-145) mmol/L Potassium 3.6 (3.4-5.0) mmol/L Chloride 105 (98-107) mmol/L Carbon Dioxide 25 (22-30) mmol/L Anion Gap 8 (4-12) mmol/L BUN 7 (7-17) mg/dL Creatinine 0.63 L (0.7-1.0) mg/dL Estim Creat Clear Calc 83 ml/min Estimated GFR > 60 (59 - ) Glucose 106 (65-110) mg/dL Calcium 9.1 (8.4-10.2) mg/dL Total Bilirubin 0.7 (0.2-1.3) mg/dL AST 22 (14-36) U/L ALT 14 (6-35) U/L Alkaline Phosphatase 81 (38-126) U/L Troponin I < 0.012 < 0.012 (0.000-0.034) ng/mL Total Protein 7.4 (6.3-8.2) g/dL Albumin 4.5 (3.5-5.1) g/dL Lipase 66 (23-300) U/L <Abhinav Tesfaye MD - Last Filed: 04/29/25 07:53> Imaging Data Radiologist's impression: ITS Impressions Chest X-Ray 04/18/25 15:45 Impression: No acute cardiopulmonary abnormality. Chest CTA 04/18/25 22:02 IMPRESSION: There is no pulmonary embolism, aortic dissection, pericardial fluid or thoracic aneurysm. No acute lung findings. All CT scans at this facility are performed using low dose modulation techniques as appropriate to perform exam including the following: automated exposure control; use of iterative reconstruction technique; adjustment of the mA and/or kV according to patient size (this includes techniques or standardized protocols for targeted exams where dose is matched to indication/reason for exam). <Ivette Benton PA-C - Last Filed: 04/28/25 14:09> Discharge Plan Discharge Clinical Impression: Atypical chest pain, Strain of cervical portion of left trapezius muscle <Ivette Benton PA-C - Last Filed: 04/28/25 14:09> Patient Disposition: Home <Ivette Benton PA-C - Last Filed: 04/28/25 14:09> Condition: Stable <Ivette Benton PA-C - Last Filed: 04/28/25 14:09> Instructions: Antibiotic Form, Chest Pain (ED) <Ivette Benton PA-C - Last Filed: 04/28/25 14:09> Additional Instructions: Tylenol and ibuprofen for pain control. Flexeril for muscle spasm. Have close follow-up with your primary care physician for additional outpatient cardiac testing. If you have any worsening symptoms then please call or return to the emergency department. <Ivette Benton PA-C - Last Filed: 04/28/25 14:09> Patient Language: Turkmen <Ivette Benton PA-C - Last Filed: 04/28/25 14:09> Prescriptions: New cyclobenzaprine 10 mg tablet 10 mg PO BID PRN (Reason: muscle spasm) Qty: 14 0RF <Ivette Benton PA-C - Last Filed: 04/28/25 14:09> Follow-up/Referrals: UNKNOWN,DOCTOR [Non-Staff] <Ivette Benton PA-C - Last Filed: 04/28/25 14:09> Quality HEART score for chest pain patients History: slightly suspicious <Abhinav Tesfaye MD - Last Filed: 04/29/25 07:53> Age: < or = to 45 years <Abhinav Tesfaye MD - Last Filed: 04/29/25 07:53> Risk factors: 1 or 2 risk factors <Abhinav Tesfaye MD - Last Filed: 04/29/25 07:53> Troponin: < or = to 1x normal limit <Abhinav Tesfaye MD - Last Filed: 04/29/25 07:53>
[2025-04-18] MEDS: ASPIRIN 81 MG CHEWABLE TABLET 324 MG PO (18:11)
--- NOTE | 2025-04-18 18:23 | ECG_ITS ---
Test Date: 2025-04-18 18:31:23 Measurements Intervals [place] Rate: 81 P: 59 CO: 137 QRS: 72 QRSD: 74 T: 38 QT: 319 QTc: 372 Interpretive Statements SINUS RHYTHM Compared to ECG 04/18/2025 15:22:49 No significant changes Electronically Signed On 04-18-2025 22:33:16 ASTRONOMY TEACHER by Babar Reynoso D.O
[2025-04-18] MEDS: Please add drug allergy info to patient profile. 1 EACH XX (18:57)
[2025-04-18 19:55] LABS: Troponin I < 0.012 ng/mL (0.000-0.034)
[2025-04-18 20:23] VITALS: O2SAT 98
[2025-04-18 22:30] VITALS: BP 126/77; PULSE 66; RESP 14; O2SAT 99
== END 2025-04-18 22:30 | disposition home or self-care (01) ==
PROVIDERS: Emergency Medicine; Emergency Provider Emergency Medicine; PCP Physician Assistant
DX: R07.89 Other chest pain (principal); S16.1XXA Strain of muscle, fascia and tendon at neck level, initial encounter; X58.XXXA Exposure to other specified factors, initial encounter
CPT/HCPCS: 36415; 71046; 71275; 80053; 83690; 84484; 85025; 85380; 85610; 85730; 93005; 99284; A9270; Q9967